=== PATIENT | male | born 1975 | race Caucasian/White ===

== ENCOUNTER 2022-01-11 18:00 | Emergency (ER) | payer OTHER ==
[~2022-01-11] VITALS: Ht 185 cm; Wt 77.0 kg
--- NOTE | 2022-01-11 18:17 | ED Upper Extremity ---
General Chief Complaint: Upper Extremity Stated Complaint: RIGHT HAND INJURY PAIN/SWELLING History of Present Illness Date Seen by Provider: Jan 11, 2022 Time Seen by Provider: 18:16 Initial Comments 46-year-old male is here with complaints of right hand swelling and pain since Wednesday after he was trying to close a metal gate that would not close. Patient states that by the fifth time he tried some indicate he hurt his hand. Patient has been icing and taking Tylenol but the swelling has been worsening and the pain has not improved. Patient is right-hand dominant. Denies sensory loss. Allergies and Home Medications Patient Home Medication List Home Medication List Reviewed: Yes Review of Systems Constitutional: no symptoms reported EENTM: no symptoms reported Respiratory: no symptoms reported Cardiovascular: no symptoms reported Gastrointestinal: no symptoms reported Genitourinary: no symptoms reported Musculoskeletal: joint pain, joint swelling Skin: no symptoms reported Psychiatric/Neurological: No Symptoms Reported Past Xnwmlrp-Adousm-Amovej Hx Patient Social History Tobacco Use?: No Substance use?: No Alcohol Use?: No Pt feels they are or have been: No Physical Exam Vital Signs Vital Signs - First Documented 01/11/22 18:10 Temp 36.0 Pulse 86 Resp 18 B/P (MAP) 105/60 (75) Pulse Ox 97 Capillary Refill : Height, Weight, BMI Height: '" Weight: lbs. oz. kg; BMI Method: General Appearance: WD/WN, no apparent distress HEENT: PERRL/EOMI Neck: full range of motion Wrist: Yes normal inspection, Yes non-tender, Yes no evidence of injury, Yes normal ROM Hand: Right (Right hand swelling with tenderness over the fifth MCP joint and fifth metacarpal. N/V bundle intact ROM restricted due to pain), bone tenderness (Newness over the fifth MCP joint), limited ROM (Patient is having a hard time with full extension and full flexion due to severe pain), soft tissue tenderness, swelling (Swelling of right hand and right fifth finger present) Neurologic/Psychiatric: no motor/sensory deficits, alert, oriented x 3 Skin: normal color Progress/Results/Core Measures Results/Orders My Orders Orders - CLEVE PRADO MD Hand, Right, 3 Views (01/11/22 18:20) Vital Signs/I&O 01/11/22 18:10 Temp 36.0 Pulse 86 Resp 18 B/P (MAP) 105/60 (75) Pulse Ox 97 Progress Progress Note : Progress Note 1. RIGHT MCP FRACTURE: - XR RIGHT HAND: see report - Hand splint, ice, elevation at home, Ibuprofen prn pain - Follow up with Ortho in the next 3 to 7 days - Pt states he will follow up with the [place] [facility] -The patient was seen in the ED, and treated appropriately to presentation at a specific point in time. Patient is informed that there is a possibility that disease and illness can evolve and change in acuity rapidly or slowly after patient is discharged from the ER. Precautionary advice given to the patient for immediate return to ER if symptoms worsen or do not resolve, and to seek emergency care sooner rather than later. Pt also advised on the importance of PCP follow up and compliance with management and follow up plan with PCP and/or specialist, as this is part of the management plan. Pt verbally expressed understanding. Diagnostic Imaging Diagonstic Imaging: Xray Plain Films/CT/US/NM/MRI: hand Comments [facility], [place] NAME: [facility] REC#: [id number] PT STATUS: REG ER : 1975 PHYSICIAN: CLEVE PRADO MD ADMIT DATE: 01/11/22/ER Signed Date of Exam:01/11/22 HAND, RIGHT, 3 VIEWS CLINICAL HISTORY: Right hand injury. COMPARISON: None. TECHNIQUE: 3 views of the right hand. FINDINGS: Acute spinal fracture is seen involving the mid to distal aspect of the right 5th metacarpal with extension into the right 5th MTP joint. Minimal displacement is noted. There is associated soft tissue edema. IMPRESSION: Acute spiral fracture involving the mid to distal right 5th metacarpal with extension into the right 5th MTP joint. Dictated by: Dictated on workstation # [id number] Dict: 01/11/221829 Trans: 01/11/221839 [facility] [id number] Interpreted by: AMEE BURGESS DO Electronically signed by: AMEE BURGESS DO 01/11/221839 Departure Impression Primary Impression: Fracture of fifth metacarpal bone of right hand Qualified Codes: S62.306A - Unspecified fracture of fifth metacarpal bone, right hand, initial encounter for closed fracture Disposition: HOME, SELF-CARE Condition: Stable Departure-Patient Inst. Referrals: NO,LOCAL PHYSICIAN (PCP/Family) Primary Care Physician Patient Instructions: Hand Fracture ED Add. Discharge Instructions: - Hand splint, ice, elevation at home, Ibuprofen prn pain - Follow up with Ortho in the next 3 to 7 days - Pt states he will follow up with the [place] [facility] All discharge instructions reviewed with patient and/or family. Voiced understanding. Work/School Note: Work Release Form Date Seen in the Emergency Department: Jan 11, 2022 Restrictions: Need Release from Doctor Other Restrictions Listed Below: Cannot use right hand due to splint CLEVE PRADO MD Jan 11, 2022 18:17
--- NOTE | 2022-01-11 18:38 | Diagnostic Imaging Report ---
CLINICAL HISTORY: Right hand injury. COMPARISON: None. TECHNIQUE: 3 views of the right hand. FINDINGS: Acute spinal fracture is seen involving the mid to distal aspect of the right 5th metacarpal with extension into the right 5th MTP joint. Minimal displacement is noted. There is associated soft tissue edema. IMPRESSION: Acute spiral fracture involving the mid to distal right 5th metacarpal with extension into the right 5th MTP joint. Dictated by: Dictated on workstation # [id number]
[2022-01-11 20:30] VITALS: BP 108/61
== END 2022-01-11 20:35 | disposition home or self-care (01) ==
LOC: EDUNIT# 18:00 → ER 18:03
DX: S62.396A Other fracture of fifth metacarpal bone, right hand, initial encounter for closed fracture (principal); Z28.310 Unvaccinated for COVID-19; X58.XXXA Exposure to other specified factors, initial encounter
CPT/HCPCS: 29125; 73130

== ENCOUNTER 2022-06-18 12:00 | Emergency (ER) | payer OTHER ==
[~2022-06-18] VITALS: Ht 190.5 cm; Wt 74.8 kg
--- NOTE | 2022-06-18 12:20 | ED Hip Pain/Injury ---
General Chief Complaint: Hip/Pelvic Problems Stated Complaint: RT HIP PAIN | NON-INJ Source: patient Exam Limitations: no limitations History of Present Illness Date Seen by Provider: June 18, 2022 Time Seen by Provider: 12:17 Initial Comments Patient is a 47-year-old male presents ED with right hip pain. Woke up with pain this morning. Described as sharp. Worse with flexion of the right hip. Does have a sharp shooting pain that radiates to the knee and calf. States he did have some low back pain but pain appears to be fairly localized to the anterior hip. States he slept in the recliner. Potentially may have slept wrong. Denies of any specific injuries. Denies of any bowel or urine incontinence, saddle paresthesia. States he feels a bulge in his right groin. Denies any testicle or pain, testicle swelling, dysuria, hematuria or bloody urine. Worse with any type of movement. Denies taking thing for pain at home. Patient is concern for pinched nerve versus dislocation versus hernia. Patient denies abdominal pain, chest pain, cough, shortness of breath, nausea, vomiting Allergies and Home Medications Allergies Coded Allergies: tramadol (Verified Allergy, Unknown, 06/18/22) Patient Home Medication List Home Medication List Reviewed: Yes Cyclobenzaprine HCl (Cyclobenzaprine HCl) 10 Mg Tablet, 10 MG PO TID Prescribed by: YARIEL ZUÑIGA on 06/18/22 1250 Ketorolac Tromethamine (Ketorolac Tromethamine) 10 Mg Tablet, 10 MG PO TID Prescribed by: YARIEL ZUÑIGA on 06/18/22 1255 Review of Systems Constitutional: No chills, No diaphoresis EENTM: No blurred vision, No double vision Respiratory: No cough, No dyspnea on exertion, No short of breath Gastrointestinal: No abdominal pain, No nausea Genitourinary: No decreased output, No discharge Musculoskeletal: joint pain, joint swelling, muscle pain All Other Systems Reviewed Negative Unless Noted: Yes Physical Exam Vital Signs Vital Signs - First Documented 06/18/22 12:10 Temp 37.0 Pulse 92 Resp 19 B/P (MAP) 121/77 (92) O2 Delivery Room Air Capillary Refill : Height, Weight, BMI Height: '" Weight: lbs. oz. kg; 22.00 BMI Method: General Appearance: No Apparent Distress, WD/WN HEENT: PERRL/EOMI, TMs Normal, Normal ENT Inspection, Pharynx Normal Neck: Full Range of Motion, Normal Inspection, Non Tender, Supple Cardiovascular: Regular Rate, Rhythm, No Edema, No Gallop Respiratory: Chest Non Tender, Lungs Clear, Normal Breath Sounds, No Accessory Muscle Use, No Respiratory Distress Gastrointestinal: Normal Bowel Sounds, No Organomegaly, No Pulsatile Mass, Non Tender, Soft Back: Normal Inspection, No Vertebral Tenderness, Other (No lumbar midline tenderness. No pain with flexion extension) Extremity: Other (Right anterior hip tenderness with flexion of the right hip. Mild pain with internal rotation. No pain with external rotation. No right- sided hip tenderness. No buttock tenderness.) Neurologic/Psychiatric: Alert, Oriented x3, No Motor/Sensory Deficits, Normal Mood/Affect, rn neonatal icu II-XII Norm as Tested Skin: Normal Color, Warm/Dry Progress/Results/Core Measures Results/Orders My Orders Orders - JOLIE ALCANTARA Orphenadrine Inj (Ed Only) (Norflex Inje (06/18/22 12:30) Ketorolac Injection (Toradol Injection) (06/18/22 12:30) Hydrocodone/Apap 5/325 Tablet (Lortab 5 (06/18/22 12:30) Medications Given in ED Current Medications Medications Dose Ordered Sig/John Route Start Time Stop Time Status Last Admin Dose Admin Acetaminophen/ Hydrocodone Bitart 1 ea ONCE ONCE PO 06/18/22 12:30 06/18/22 12:31 DC 06/18/22 12:35 1 EA Ketorolac Tromethamine 30 mg ONCE ONCE IM 06/18/22 12:30 06/18/22 12:31 DC 06/18/22 12:35 30 MG Orphenadrine Citrate 60 mg ONCE ONCE IM 06/18/22 12:30 06/18/22 12:31 DC 06/18/22 12:35 60 MG Vital Signs/I&O 06/18/22 12:10 Temp 37.0 Pulse 92 Resp 19 B/P (MAP) 121/77 (92) O2 Delivery Room Air Departure Communication (PCP) Patient is a 47-year-old male who presents ED with with right hip pain. Woke up with pain this morning. Patient slept in a recliner. No specific injury. Reports pain down through the thigh and knee. He has had some low back pain but no specific pain at this time. He had no lumbar midline tenderness. No pain with flexion or extension. Pain to the right hip flexors, abductors on palpation. Pain with flexion. Pain with internal and mild external rotation. No right lower extremity weakness. No swelling, bruising or redness. No inguinal lymphadenopathy. No bulge suggesting hernia. No testicular pain, urinary symptoms. Would not suspect a dislocation without any specific mechanism of injury. No known history of laxative joints. My concern would be hip strain to the hip flexors. Possible iliopsoas spasming. He was given Toradol, Norflex, dose of hydrocodone. No evidence of extremity shortening or rotation. Denies of any drug use. Other potential etiologies would be femoral acetabular impingement or possible labrum injury. Recommend further outpatient follow-up. If any worsening symptoms return back to ED. Recommend rest for the next week. Discussed stretching. Will discharge with anti-inflammatories and muscle relaxer Impression Primary Impression: Hip pain Disposition: 01 HOME, SELF-CARE Condition: Stable Departure-Patient Inst. Decision time for Depature: 12:20 Referrals: NO,LOCAL PHYSICIAN (PCP) Primary Care Physician LAVELLE RODRÍGUEZ MD Patient Instructions: Hip Pain Add. Discharge Instructions: If continue having pain over the next 1 to 2 weeks recommend follow-up your primary care physician for further evaluation. Recommend rest, stretching for the next 1 to 2 weeks. All discharge instructions reviewed with patient and/or family. Voiced understanding. Scripts Cyclobenzaprine HCl (Cyclobenzaprine HCl) 10 Mg Tablet 10 MG PO TID for Muscle Spasms, #14 TAB Prov: JOLIE ALCANTARA 06/18/22 Ketorolac Tromethamine (Ketorolac Tromethamine) 10 Mg Tablet 10 MG PO TID, #15 TAB Prov: JOLIE ALCANTARA 06/18/22 JOLIE ALCANTARA June 18, 2022 12:20
[2022-06-18] MEDS ORDERED: ORPHENADRINE 60 MG/2 ML (NORFLEX) AMP (ED ONLY) IM ONE (12:30)
[2022-06-18] MEDS ORDERED: HYDROcodone/APAP 5 MG/325 MG (LORTAB) TAB PO ONE (12:30)
[2022-06-18] MEDS ORDERED: KETOROLAC 30 MG/ML VIAL IM ONE (12:30)
[2022-06-18] MEDS ORDERED: KETO10TA PO (12:55)
[2022-06-18] MEDS ORDERED: CYCL10TA25 PO (12:55)
[2022-06-18 12:58] VITALS: BP 121/77
== END 2022-06-18 12:58 | disposition home or self-care (01) ==
LOC: EDUNIT# 12:00 → ER 12:05
DX: M25.551 Pain in right hip (principal); Z28.310 Unvaccinated for COVID-19; Z88.5 Allergy status to narcotic agent
CPT/HCPCS: 99284